=== PATIENT | male | born 2000 | race Caucasian/White ===

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

== ENCOUNTER 2020-06-12 03:40 | Emergency (ER) | payer MEDICAID ==
[~2020-06-12] VITALS: Ht 182.9 cm; Wt 81.8 kg
[2020-06-12] MEDS ORDERED: TETanus/Pertussis (Acell)/Diphther VAC/PF (Tdap-Adult) 0.5ml syringe IMVAC ONE (04:00)
[2020-06-12] MEDS ORDERED: acetaminophen 325mg tablet PO ONE (04:30)
[2020-06-12] MEDS ORDERED: ondansetron/PF 4mg/2ml inj IV ONE ×2 (04:30→05:04)
[2020-06-12] MEDS ORDERED: normal saline 1000ML IV soln IVB ONE (04:30)
[2020-06-12 04:41] LABS: BASOPHILS # (AUTO) 0.1 X10'3 (0-0.2); BASOPHILS % (AUTO) 0.7 % (0-1); EOSINOPHILS # (AUTO) 0.3 X10'3 (0-0.9); EOSINOPHILS % (AUTO) 2.8 % (0-6); HEMATOCRIT 47.7 % (42.0-52.0); LYMPHOCYTES # (AUTO) 3.2 X10'3 (1.1-4.8); MEAN CORPUSCULAR HEMOGLOBIN 31.1 PG (27.0-31.0); MEAN CORPUSCULAR HGB CONC 33.5 g/dL (33.0-36.5); MEAN CORPUSCULAR VOLUME 92.8 FL (78-98); MEAN PLATELET VOLUME 9.9 FL (7.4-10.4); MONOCYTES # (AUTO) 0.7 X10'3 (0-0.9); MONOCYTES % (AUTO) 7.3 % (2-12); NEUTROPHILS # (AUTO) 5.8 X10'3 (1.8-7.7); NEUTROPHILS % (AUTO) 57.2 % (42-75); PLATELET COUNT 326 X10'3 (140-440); RED BLOOD COUNT 5.14 X10'6 (4.70-6.10); RED CELL DISTRIBUTION WIDTH 11.8 % (11.5-14.5); WHITE BLOOD COUNT 10.1 X10'3 (4.5-11.0)
[2020-06-12 04:46] LABS: ALANINE AMINOTRANSFERASE 21 U/L (12-78); ALBUMIN 4.1 G/DL (3.4-5.0); ALBUMIN/GLOBULIN RATIO 1.1 (1.1-1.5); ALKALINE PHOSPHATASE 69 IU/L (46-116); ANION GAP 16 (8-16); ASPARTATE AMINO TRANSFERASE 15 U/L (10-37); BILIRUBIN,TOTAL 0.3 MG/DL (0.1-1.0); BLOOD UREA NITROGEN 6 MG/DL (7-18); BUN/CREATININE RATIO 4.7 (5.4-32.0); CALCIUM 9.1 MG/DL (8.5-10.1); CHLORIDE 105 MMOL/L (99-107); CREATININE 1.28 MG/DL (0.60-1.10); GLUCOSE 115 MG/DL (70-104); POTASSIUM 3.5 MMOL/L (3.5-5.1); SODIUM 144 MMOL/L (135-145); TOTAL CARBON DIOXIDE 23.1 MMOL/L (24-32); TOTAL PROTEIN 7.9 G/DL (6.4-8.2); eGFR 71 ML/MIN
[2020-06-12 04:55] LABS: ETHANOL < 0.010 GM/DL (0.0-0.010)
[2020-06-12] MEDS ORDERED: ONDA4TAB6 PO (05:30)
[2020-06-12] MEDS ORDERED: HYDR-3965 PO (05:30)
[2020-06-12 05:38] LABS: CLARITY,URINE CLEAR (Clear); COLOR,URINE YELLOW (Yellow); GLUCOSE, URINE NEGATIVE (Neg); KETONES,URINE TRACE mg/dl (Neg); LEUKOCYTE ESTERASE ,URINE NEGATIVE (Neg); NITRITES, URINE NEGATIVE (Neg); OCCULT BLOOD,URINE NEGATIVE (Neg); PH,URINE 6.5 (4.8-8.0); PROTEIN,URINE NEGATIVE (Neg); UROBILINOGEN,URINE 0.2 E.U/dL (0.2-1.0)
[2020-06-12 05:48] LABS: UA COLLECTION TYPE CLN CATCH MIDSTREAM
[2020-06-12 05:55] LABS: URINE AMPHETAMINE SCREEN NEGATIVE (Neg); URINE BARBITUATE SCREEN NEGATIVE (Neg); URINE BENZODIAZEPINES SCREEN POSITIVE (Neg); URINE CANNABINOID SCREEN NEGATIVE (Neg); URINE COCAINE SCREEN POSITIVE (Neg); URINE METHADONE SCREEN NEGATIVE (Neg); URINE OPIATE SCREEN NEGATIVE (Neg); URINE PHENCYCLIDINE SCREEN NEGATIVE (Neg)
[2020-06-12 06:47] VITALS: BP 168/101
[2020-06-12] MEDS ORDERED: KEP500T PO (16:28)
[2020-06-13] MEDS ORDERED: KEP500T PO (13:11)
== END 2020-06-12 06:45 | disposition home or self-care (01) ==
LOC: ER 03:40
DX: S02.32XA Fracture of orbital floor, left side, initial encounter for closed fracture (principal); S00.83XA Contusion of other part of head, initial encounter; S06.0X0A Concussion without loss of consciousness, initial encounter; R44.0 Auditory hallucinations; R41.82 Altered mental status, unspecified; R44.1 Visual hallucinations; N28.9 Disorder of kidney and ureter, unspecified; Z20.3 Contact with and (suspected) exposure to rabies; Z86.69 Personal history of other diseases of the nervous system and sense organs; Z79.2 Long term (current) use of antibiotics; Z79.899 Other long term (current) drug therapy; X58.XXXA Exposure to other specified factors, initial encounter; Y93.89 Activity, other specified; Y92.89 Other specified places as the place of occurrence of the external cause; Y99.8 Other external cause status
CPT/HCPCS: 36415; 70450; 70486; 80053; 80305; 80320; 81003; 82948; 84443; 85025; 90471; 90715; 93005; 96361; 96374; 99285; J2405; J7030

== ENCOUNTER 2020-06-12 14:03 | Emergency (ER) | payer MEDICAID ==
[~2020-06-12] VITALS: Ht 182.9 cm; Wt 101.8 kg
[~2020-06-12 14:03] MED LIST changes: +HYDR-3965 PO; +ONDA4TAB6 PO
[2020-06-12] MEDS ORDERED: normal saline 1000ML IV soln IVB ONE (14:10)
[2020-06-12] MEDS ORDERED: LORazepam 2 mg/ml vial IV ONE (14:35)
[2020-06-12 15:45] LABS: BASOPHILS # (AUTO) 0.1 X10'3 (0-0.2); BASOPHILS % (AUTO) 0.7 % (0-1); EOSINOPHILS # (AUTO) 0.1 X10'3 (0-0.9); EOSINOPHILS % (AUTO) 0.5 % (0-6); HEMATOCRIT 43.9 % (42.0-52.0); HEMOGLOBIN 15.1 g/dl (14.0-17.9); LYMPHOCYTES # (AUTO) 1.5 X10'3 (1.1-4.8); LYMPHOCYTES % (AUTO) 12.7 % (21-51); MEAN CORPUSCULAR HEMOGLOBIN 31.4 PG (27.0-31.0); MEAN CORPUSCULAR HGB CONC 34.3 g/dL (33.0-36.5); MEAN CORPUSCULAR VOLUME 91.6 FL (78-98); MEAN PLATELET VOLUME 9.9 FL (7.4-10.4); MONOCYTES # (AUTO) 0.8 X10'3 (0-0.9); MONOCYTES % (AUTO) 6.8 % (2-12); NEUTROPHILS # (AUTO) 9.5 X10'3 (1.8-7.7); NEUTROPHILS % (AUTO) 79.3 % (42-75); PLATELET COUNT 293 X10'3 (140-440); RED BLOOD COUNT 4.79 X10'6 (4.70-6.10); RED CELL DISTRIBUTION WIDTH 11.7 % (11.5-14.5)
[2020-06-12 15:59] LABS: ALANINE AMINOTRANSFERASE 19 U/L (12-78); ALBUMIN 3.7 G/DL (3.4-5.0); ALBUMIN/GLOBULIN RATIO 1.1 (1.1-1.5); ALKALINE PHOSPHATASE 59 IU/L (46-116); ANION GAP 10 (8-16); ASPARTATE AMINO TRANSFERASE 15 U/L (10-37); BILIRUBIN,TOTAL 0.3 MG/DL (0.1-1.0); BLOOD UREA NITROGEN 6 MG/DL (7-18); BUN/CREATININE RATIO 6.2 (5.4-32.0); CALCIUM 8.5 MG/DL (8.5-10.1); CHLORIDE 105 MMOL/L (99-107); CREATININE 0.97 MG/DL (0.60-1.10); GLUCOSE 95 MG/DL (70-104); POTASSIUM 3.5 MMOL/L (3.5-5.1); SODIUM 141 MMOL/L (135-145); TOTAL CARBON DIOXIDE 25.8 MMOL/L (24-32); eGFR > 90 ML/MIN
[2020-06-12 16:05] LABS: ETHANOL < 0.010 GM/DL (0.0-0.010)
[2020-06-12] MEDS ORDERED: KEP500T PO (16:28)
[2020-06-12] MEDS ORDERED: levetiracetam 250mg tablet PO ONE (16:30)
[2020-06-12 17:05] VITALS: BP 120/64
[2020-06-12 17:21] LABS: URINE AMPHETAMINE SCREEN NEGATIVE (Neg); URINE BARBITUATE SCREEN NEGATIVE (Neg); URINE BENZODIAZEPINES SCREEN NEGATIVE (Neg); URINE CANNABINOID SCREEN NEGATIVE (Neg); URINE COCAINE SCREEN POSITIVE (Neg); URINE METHADONE SCREEN NEGATIVE (Neg); URINE OPIATE SCREEN NEGATIVE (Neg); URINE PHENCYCLIDINE SCREEN NEGATIVE (Neg)
[2020-06-13] MEDS ORDERED: KEP500T PO (13:11)
== END 2020-06-12 17:23 | disposition home or self-care (01) ==
LOC: ER 14:04
DX: G40.909 Epilepsy, unspecified, not intractable, without status epilepticus (principal); F20.9 Schizophrenia, unspecified; F14.90 Cocaine use, unspecified, uncomplicated; Z79.2 Long term (current) use of antibiotics; Z79.899 Other long term (current) drug therapy
CPT/HCPCS: 36415; 71045; 80053; 80305; 80320; 85025; 96361; 96374; 99284; J2060; J7030

== ENCOUNTER 2020-08-02 11:32 | Emergency (ER) | payer MEDICAID ==
[~2020-08-02] VITALS: Ht 185.4 cm; Wt 102.3 kg
[~2020-08-02 11:32] MED LIST changes: -HYDR-3965 PO; +KEP500T PO
[2020-08-02 11:37] VITALS: BP 98/45
[2020-08-02] MEDS ORDERED: LEVE10002 PO (11:42)
== END 2020-08-02 12:16 | disposition home or self-care (01) ==
LOC: ER 11:32
DX: R56.9 Unspecified convulsions (principal); F20.9 Schizophrenia, unspecified; F14.90 Cocaine use, unspecified, uncomplicated; Z76.0 Encounter for issue of repeat prescription; Z86.69 Personal history of other diseases of the nervous system and sense organs; Z79.2 Long term (current) use of antibiotics; Z79.899 Other long term (current) drug therapy
CPT/HCPCS: 99283

== ENCOUNTER 2020-10-17 04:53 | Emergency (ER) | payer MEDICAID ==
[~2020-10-17] VITALS: Ht 188 cm; Wt 94.9 kg
[~2020-10-17 04:53] MED LIST changes: +LEVE10002 PO
[2020-10-17] MEDS ORDERED: LORA-269 PO (05:22)
[2020-10-17] MEDS ORDERED: LORazepam 1 MG tablet PO ONE (05:25)
--- NOTE | 2020-10-17 05:35 | NUR ---
Patient remained cooperative. Eval by ER . Ativan 1mg given PO for anxiety. Patient exhibited discharge instructions. Patient discharge home with girlfriend driving. Patient instructed to flu with [facility] tomorrow. Patient exhibits understanding. Disch to home.
[2020-10-17 05:37] VITALS: BP 124/76
== END 2020-10-17 05:41 | disposition home or self-care (01) ==
LOC: ER 04:54
DX: F41.9 Anxiety disorder, unspecified (principal); F20.9 Schizophrenia, unspecified; R25.1 Tremor, unspecified; F14.90 Cocaine use, unspecified, uncomplicated; Z86.69 Personal history of other diseases of the nervous system and sense organs; Z79.899 Other long term (current) drug therapy
CPT/HCPCS: 99283

== ENCOUNTER 2020-11-24 21:26 | Emergency (ER) | payer MEDICAID ==
[~2020-11-24] VITALS: Ht 188 cm; Wt 98.2 kg
[~2020-11-24 21:26] MED LIST changes: +LORA-269 PO
[2020-11-24 21:31] VITALS: BP 122/79
[2020-11-24] MEDS ORDERED: LORazepam 1 MG tablet PO ONE (23:40)
== END 2020-11-25 01:25 | disposition home or self-care (01) ==
LOC: ER 21:27
DX: F41.9 Anxiety disorder, unspecified (principal); F20.9 Schizophrenia, unspecified; F12.90 Cannabis use, unspecified, uncomplicated; F14.90 Cocaine use, unspecified, uncomplicated; Z86.69 Personal history of other diseases of the nervous system and sense organs; Z79.2 Long term (current) use of antibiotics; Z79.899 Other long term (current) drug therapy
CPT/HCPCS: 99281

== ENCOUNTER 2021-09-23 21:09 | Emergency (ER) | payer MEDICAID ==
[~2021-09-23] VITALS: Ht 188 cm; Wt 109.1 kg
[2021-09-23 21:13] VITALS: BP 156/102
== END 2021-09-23 22:50 | disposition home or self-care (01) ==
LOC: ER 21:11
DX: R56.9 Unspecified convulsions (principal); F12.90 Cannabis use, unspecified, uncomplicated; F11.90 Opioid use, unspecified, uncomplicated; F13.239 Sedative, hypnotic or anxiolytic dependence with withdrawal, unspecified; Z79.2 Long term (current) use of antibiotics; Z79.899 Other long term (current) drug therapy
CPT/HCPCS: 99281

== ENCOUNTER 2022-04-29 15:18 | Emergency (ER) | payer MEDICAID ==
[~2022-04-29] VITALS: Ht 185.4 cm; Wt 109.1 kg
--- NOTE | 2022-04-29 19:22 | NUR ---
PAGE FOR CT HEAD FACE FOOT ANKLE CHEST
[2022-04-29 19:43] LABS: BASOPHILS % (AUTO) 0.4 % (0-1); EOSINOPHILS # (AUTO) 0.1 X10'3 (0-0.9); EOSINOPHILS % (AUTO) 0.5 % (0-6); HEMATOCRIT 49.7 % (42.0-52.0); HEMOGLOBIN 16.6 g/dl (14.0-17.9); LYMPHOCYTES % (AUTO) 8.7 % (21-51); MEAN CORPUSCULAR HEMOGLOBIN 30.2 PG (27.0-31.0); MEAN CORPUSCULAR HGB CONC 33.4 g/dL (33.0-36.5); MEAN CORPUSCULAR VOLUME 90.4 FL (78-98); MEAN PLATELET VOLUME 10.2 FL (7.4-10.4); MONOCYTES # (AUTO) 1.1 X10'3 (0-0.9); MONOCYTES % (AUTO) 9.5 % (2-12); NEUTROPHILS # (AUTO) 9.6 X10'3 (1.8-7.7); NEUTROPHILS % (AUTO) 80.9 % (42-75); PLATELET COUNT 222 X10'3 (140-440); RED BLOOD COUNT 5.49 X10'6 (4.70-6.10); RED CELL DISTRIBUTION WIDTH 12.9 % (11.5-14.5); WHITE BLOOD COUNT 11.8 X10'3 (4.5-11.0)
[2022-04-29 19:52] LABS: ALANINE AMINOTRANSFERASE 47 U/L (12-78); ALBUMIN 4.3 G/DL (3.4-5.0); ALBUMIN/GLOBULIN RATIO 1.2 (1.1-1.5); ALKALINE PHOSPHATASE 80 IU/L (46-116); ANION GAP 10 (8-16); ASPARTATE AMINO TRANSFERASE 20 U/L (10-37); BILIRUBIN,TOTAL 0.7 MG/DL (0.1-1.0); BLOOD UREA NITROGEN 6 MG/DL (7-18); BUN/CREATININE RATIO 6.1 (5.4-32.0); CALCIUM 9.2 MG/DL (8.5-10.1); CHLORIDE 101 MMOL/L (99-107); CREATININE 0.98 MG/DL (0.60-1.10); GLUCOSE 101 MG/DL (70-104); POTASSIUM 3.5 MMOL/L (3.5-5.1); SODIUM 138 MMOL/L (135-145); TOTAL CARBON DIOXIDE 26.7 MMOL/L (24-32); TOTAL PROTEIN 7.8 G/DL (6.4-8.2); eGFR > 90 ML/MIN
[2022-04-29 21:46] VITALS: BP 126/76
== END 2022-04-29 21:15 | disposition home or self-care (01) ==
LOC: ER 15:19
DX: F14.988 Cocaine use, unspecified with other cocaine-induced disorder (principal); R56.9 Unspecified convulsions; F41.9 Anxiety disorder, unspecified; F20.9 Schizophrenia, unspecified; Z79.899 Other long term (current) drug therapy
CPT/HCPCS: 36415; 70450; 70486; 80053; 85025; 99284